=== PATIENT | male | born 1970 | race Asian ===

== ENCOUNTER 2016-10-15 15:54 | Emergency (ER) | payer BC ==
[~2016-10-15] VITALS: Ht 180.3 cm; Wt 85.9 kg
[~2016-10-15 15:54] MED LIST: ALLO100T30 PO; COLC0.6T37 PO; OMEP20TA62 PO
[2016-10-15 15:55] VITALS: BP 156/97
[2016-10-15] MEDS ORDERED: KETOROLAC 30 MG/1 ML ONE (16:21)
[2016-10-15] MEDS ORDERED: KETOROLAC 30 MG/1 ML IM ONE (16:30)
== END 2016-10-15 16:38 | disposition home or self-care (01) ==
LOC: ED 16:30
DX: S29.012A Strain of muscle and tendon of back wall of thorax, initial encounter (principal); X58.XXXA Exposure to other specified factors, initial encounter; Y93.89 Activity, other specified; Y92.89 Other specified places as the place of occurrence of the external cause; Y99.8 Other external cause status
CPT/HCPCS: 96372; 99283; J1885

== ENCOUNTER 2019-04-16 20:28 | Emergency (ER) | payer BC ==
[~2019-04-16] VITALS: Ht 180.3 cm; Wt 80.0 kg
[2019-04-16] MEDS ORDERED: OXYcodone/APAP 5/325MG TABLET ONE (21:17)
[2019-04-16] MEDS ORDERED: INDOMETHACIN 50 MG CAPSULE ONE (21:17)
[2019-04-16] MEDS ORDERED: COLCHICINE 0.6 MG CAPSULE ONE (21:17)
[2019-04-16] MEDS ORDERED: INDOMETHACIN 50 MG CAPSULE PO ONE (21:30)
[2019-04-16] MEDS ORDERED: COLCHICINE 0.6 MG CAPSULE PO ONE (21:30)
[2019-04-16] MEDS ORDERED: OXYcodone/APAP 5/325MG TABLET PO ONE (21:30)
[2019-04-16 21:55] VITALS: BP 145/93
== END 2019-04-16 21:56 | disposition home or self-care (01) ==
LOC: ED 21:50
DX: M10.062 Idiopathic gout, left knee (principal); M10.072 Idiopathic gout, left ankle and foot
CPT/HCPCS: 99284

== ENCOUNTER 2019-05-03 22:18 | Emergency (ER) | payer BC ==
[~2019-05-03] VITALS: Ht 180.3 cm; Wt 80.8 kg
[2019-05-03 22:19] VITALS: BP 132/91
[2019-05-03] MEDS ORDERED: KETOROLAC 30 MG/1 ML ONE (22:39)
--- NOTE | 2019-05-03 22:43 | NUR ---
medicated per emar for lle pain decribed as gout throbbing at 810
[2019-05-03] MEDS ORDERED: KETOROLAC 30 MG/1 ML IM ONE (23:00)
[2019-05-03] MEDS ORDERED: COLCHICINE 0.6 MG CAPSULE PO ONE (23:00)
[2019-05-03] MEDS ORDERED: COLCHICINE 0.6 MG CAPSULE ONE (23:04)
== END 2019-05-03 23:13 | disposition home or self-care (01) ==
LOC: ED 22:58
DX: M25.572 Pain in left ankle and joints of left foot (principal); F17.210 Nicotine dependence, cigarettes, uncomplicated; Z72.9 Problem related to lifestyle, unspecified
CPT/HCPCS: 96372; 99283; J1885